=== PATIENT | female | born 1960 | race Caucasian/White ===

== ENCOUNTER → 2017-02-07 | Outpatient (CLI) | payer MEDICAID ==
[2017-02-07 12:43] LABS: LYMPH # 2.3 K/mm3 (0.7-4.5); LYMPH % 26.5 % (10-50.0)
[2017-02-07 12:52] LABS: HEMOGLOBIN 13.6 g/dL (12.2-16.2)
[2017-02-07 13:08] LABS: BUN 19 mg/dL (7-18); GFR (ESTIMATED) 58 ML/MIN (59-)
[2017-02-08 09:37] LABS: Creatinine, Urine 89.1 mg/dL (Not Estab.); Microalbumin, Urine <3.0 ug/mL (Not Estab.)
== END ==
LOC: CARL-LAB 09:31
PROVIDERS: Physician Assistant
DX: E11.9 Type 2 diabetes mellitus without complications (principal); E78.5 Hyperlipidemia, unspecified; I10 Essential (primary) hypertension